=== PATIENT | male | born 1995 | race Caucasian/White ===

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

== ENCOUNTER 2019-03-03 19:20 | Emergency (ER) | payer BC, OTHER ==
[2019-03-03 19:28] VITALS: TEMP 98.1; BMI 29.8
--- NOTE | 2019-03-03 19:32 | PDOC ---
Rapid Medical Evaluation Chief Complaint: Lightheaded Time Seen by Provider: 03/03/19 19:26 Medical Evaluation: Allergies Allergy/AdvReac Type Severity Reaction Status Date / Time No Known Allergies Allergy Verified 12/23/16 13:28 03/03/19 19:27 I have performed a brief in-person evaluation of this patient. The patient presents with a chief complaint of: dizziness/ lightheaded / no fevers , just returned from the [place] yesterday Pertinent physical exam findings: pale, sunburn , no meds I have ordered the following: UA The patient will proceed to the ED for further evaluation. 03/03/19 19:32 Discharge Disposition - Diagnosis Dizziness - Referrals - Patient Instructions - Post Discharge Activity
[2019-03-03 20:59] LABS: PH,URINE 8.5 (5.0-8.0); URINE APPEARANCE TURBID; URINE BILIRUBIN NEGATIVE (NEGATIVE); URINE COLOR YELLOW; URINE GLUCOSE (UA) NEGATIVE (NEGATIVE); URINE KETONE TRACE (NEGATIVE); URINE LEUK ESTERASE NEGATIVE (NEGATIVE); URINE NITRITE NEGATIVE (NEGATIVE); URINE PROTEIN NEGATIVE (NEGATIVE)
[2019-03-03] MEDS ORDERED: ONDANSETRON 4 MG TABLET PO ONE (21:03)
--- NOTE | 2019-03-03 21:03 | PDOC ---
History of Present Illness - General Chief Complaint: Lightheaded Stated Complaint: NAUSEA/DIZZINESS Time Seen by Provider: 03/03/19 19:26 History Source: Patient - History of Present Illness Initial Comments: 03/03/19 21:15 Probably viral 24-year-old male complaining of slight nausea, lightheadedness today today at work. Patient returned yesterday from work to [facility]. Denies vomiting/diarrhea/bloody vomitus or diarrhea, fever. Past History - Past Medical History Allergies/Adverse Reactions: Allergies Allergy/AdvReac Type Severity Reaction Status Date / Time No Known Allergies Allergy Verified 03/03/19 19:29 Home Medications: Ambulatory Orders NK [No Known Home Medication] 03/03/19 COPD: No - Suicide/Smoking/Psychosocial Hx Smoking History: Never smoked Hx Alcohol Use: No Drug/Substance Use Hx: No Review of Systems - Review of Systems Able to Perform ROS?: Yes Is the patient limited [place]ian proficient: No Constitutional: No: Symptoms Reported, See HPI, Chills, Diaphoresis, Fever, Loss of Appetite, Malaise, Night Sweats, Weakness, Weight Stable, Unintentional Wgt. Loss, Unexplained wgt Loss, Other HEENTM: No: Symptoms Reported, See HPI, Eye Pain, Blurred Vision, Tearing, Recent change in vision, Double Vision, Cataracts, Ear Pain, Ocular Prothesis, Ear Discharge, Nose Pain, Nose Congestion, Tinnitus, Nose Bleeding, Hearing Loss , Throat Pain, Throat Swelling, Mouth Pain, Dental Problems, Difficulty Swallowing, Mouth Swelling, Other Respiratory: No: Symptoms reported, See HPI, Cough, Orthopnea, Shortness of Breath, SOB with Exertion, SOB at Rest, Stridor, Wheezing, Productive cough, Hemoptysis, Other ABD/GI: Yes: Nausea. No: Symptoms Reported, See HPI, Abdominal Distended, Abd. Pain w/ defecation, Blood Streaked Bowels, Constipated, Diarrhea, Difficulty Swallowing, Poor Appetite, Poor Fluid Intake, Rectal Bleeding, Vomiting, Indigestion, Abdominal cramping, Tarry Stools, Other : No: Symptoms Reported, See HPI, Burning, Dysuria, Discharge, Frequency, Flank Pain, Hematuria, Incontinence, Pain, Urgency, Testicular Mass, Testicular Swelling, Lesions, Testicular Pain, Other *Physical Exam - Vital Signs Last Vital Signs Temp Pulse Resp BP Pulse Ox 98.1 F 75 18 145/91 98 03/03/19 19:24 03/03/19 19:24 03/03/19 19:24 03/03/19 19:24 03/03/19 19:24 Medical Decision Making - Medical Decision Making 03/03/19 21:20 A: lightheadness P: ortho v/s zofran PO challenge 03/03/19 21:31 patient is slightly orthostatic. currently drinking water. will continue to encourage po hydration 03/03/19 21:32 *DC/Admit/Observation/Transfer Diagnosis at time of Disposition: Dizziness - Discharge Dispostion Disposition: HOME - Referrals Referrals: Martha Trevizo MD [Primary Care Provider] - Call tomorrow - Patient Instructions Printed Discharge Instructions: DI for Dizziness-Nonvertigo Additional Instructions: drink plenty of fluids follow a very bland diet. return to the ER for any worsening symptoms. - Post Discharge Activity Forms/Work/School Notes: Back to Work
[2019-03-03] MEDS ORDERED: ONDANSETRON *ODT* 4 MG TABLET ONE (21:09)
[2019-03-03 21:30] VITALS: BP 147/68; PULSE 81
== END 2019-03-03 21:35 | disposition home or self-care (01) ==
LOC: JERFT 19:20
DX: R42 Dizziness and giddiness (principal)
CPT/HCPCS: 81003; 99281-25